=== PATIENT | female | born 1985 | race Caucasian/White ===

== ENCOUNTER 2024-09-20 13:47 | Day surgery (SDC) | payer BC, OTHER ==
[2024-09-20 14:20] LABS: BASOPHILS ABSOLUTE AUTO 0.1 K/mm3 (0.0-0.2); BASOPHILS PERCENT AUTO 0.7 % (0.0-1.0); EOSINOPHILS ABSOLUTE AUTO 0.2 K/mm3 (0.0-0.4); EOSINOPHILS PERCENT AUTO 3.4 % (0.0-6.0); IMMATURE GRAN ABSOLUTE AUTO 0.03 K/mm3 (0.00-0.05); IMMATURE GRAN PERCENT AUTO 0.4 % (0.0-0.4); LYMPHOCYTES ABSOLUTE AUTO 2.4 K/mm3 (1.0-4.8); LYMPHOCYTES PERCENT AUTO 34.0 % (24.0-44.0); MEAN PLATELET VOLUME 9.6 fl (9.4-12.3); MONOCYTES ABSOLUTE AUTO 0.6 K/mm3 (0.0-0.8); MONOCYTES PERCENT AUTO 7.7 % (0.0-8.0); NEUTROPHILS ABSOLUTE AUTO 3.8 K/mm3 (1.8-7.7); NEUTROPHILS PERCENT AUTO 53.8 % (41.0-71.0); NRBC ABSOLUTE 0.00 (0.00-0.02); NRBC PERCENT 0.0 % (0.0-0.2); PLATELET COUNT,PLT 277 K/mm3 (150-400); RED BLOOD CELL COUNT 5.24 M/mm3 (4.10-5.30); WHITE BLOOD CELL COUNT,WBC 7.14 K/mm3 (3.9-11.3)
[2024-09-20] MEDS: Sodium Chloride 0.9% 10 ML Syringe FLUSH PRN (14:20)
[2024-09-20] MEDS: Iopamidol 612 MG/ML 100 ML Bottle IVPUSH ONE (14:20)
[2024-09-20 14:43] LABS: A/G RATIO 1.1 (1-2); ALANINE AMINOTRANSFERASE,ALT 24.0 U/L (14-59); ASPARTATE AMNIOTRANSFERASE,AST 15.0 U/L (15-37); BILIRUBIN TOTAL 0.9 mg/dL (0.2-1.0); BLOOD UREA NITROGEN,BUN 12.0 mg/dL (7-18); CARBON DIOXIDE,CO2 31.0 mEq/L (21-32); CHLORIDE,CL 103.0 mEq/L (98-107); CREATININE 0.7 mg/dL (0.55-1.02); EST CRCL DRUG DOSING (CG) 102.01 mL/min; ESTIMATED GFR 113.0 mL/min (>60); GLUCOSE RANDOM 92.0 mg/dL (70-99); POTASSIUM,K 4.0 mEq/L (3.5-5.1); PROTEIN TOTAL,TP 7.3 g/dl (6.4-8.2); SODIUM,NA 140.0 mEq/L (136-145)
[2024-09-20 17:00] LABS: APPEARANCE,URINE CLEAR (Clear); GLUCOSE,URINE NEGATIVE (Negative); OCCULT BLOOD,URINE NEGATIVE (Negative)
[2024-09-20] MEDS ORDERED: Ondansetron 4 MG/2 ML SDV ONE (17:02)
[2024-09-20] MEDS ORDERED: Ketorolac 30 MG/ML SDV ONE (17:02)
[2024-09-20] MEDS ORDERED: Dexamethasone 4 MG/ML 5 ML MDV ONE (17:02)
[2024-09-20] MEDS ORDERED: Propofol 200 MG/20 ML SDV ONE (17:03)
[2024-09-20] MEDS ORDERED: fentaNYL 100 MCG/2 ML SDV ONE ×2 (17:03→18:24)
[2024-09-20] MEDS ORDERED: Ondansetron 4 MG/2 ML SDV IVPUSH PRN (17:25)
[2024-09-20] MEDS ORDERED: EPINEPHrine 1 MG/ML SDV ONE (17:52)
[2024-09-20] MEDS ORDERED: Lactated Ringers 1,000 ML ONE (18:18)
[2024-09-20] MEDS: Bupivacaine 0.5%/EPINEPHrine 1:200,000 30 ML SDV INJECT ONE (18:22)
[2024-09-20] MEDS ORDERED: Ketamine HCL/NACL, ISO-OSM 50 MG/5 ML Syringe ONE (18:25)
[2024-09-20] MEDS: fentaNYL 100 MCG/2 ML SDV IVPUSH PRN (19:48)
[2024-09-20] MEDS: Acetaminophen/oxyCODONE 325-5 MG Tab PO PRN (20:08)
== END 2024-09-20 20:50 | disposition home or self-care (01) ==
LOC: JD.ED 13:47 → JD.SDS 16:55
PROVIDERS: ATTEND Surgery
DX: K35.80 Unspecified acute appendicitis (principal); Z79.899 Other long term (current) drug therapy
CPT/HCPCS: 36415; 44970; 74177; 80053; 81003; 84703; 85025; 86140; 96365; 99285; A9270; J0665; J1100; J1885; J2003; J2405; J2543; J2704; J3010; J7120; Q9967; 00840; 99140; 99284; J0171; J3490